=== PATIENT | male | born 1960 | race Caucasian/White ===

== ENCOUNTER → 2019-04-09 13:30 | Outpatient (BNVA) | payer MEDICARE, MEDICAID, SELFPAY | PROVIDERS: Visit Provider Nurse Practitioner | DX: F20.89 Other schizophrenia (principal); F03.90 Unspecified dementia, unspecified severity, without behavioral disturbance, psychotic disturbance, mood disturbance, and anxiety; F17.218 Nicotine dependence, cigarettes, with other nicotine-induced disorders | CPT/HCPCS: 99213 ==

== ENCOUNTER → 2019-06-11 10:30 | Outpatient (BNVA) | payer OTHER, SELFPAY | PROVIDERS: Visit Provider Nurse Practitioner | DX: F20.89 Other schizophrenia (principal); Z79.899 Other long term (current) drug therapy | CPT/HCPCS: 80061; 83036 ==

== ENCOUNTER → 2019-07-02 07:32 | Outpatient (BNVA) | payer MEDICARE, MEDICAID, SELFPAY | PROVIDERS: Visit Provider Nurse Practitioner | DX: F17.218 Nicotine dependence, cigarettes, with other nicotine-induced disorders (principal); F03.90 Unspecified dementia, unspecified severity, without behavioral disturbance, psychotic disturbance, mood disturbance, and anxiety; F20.89 Other schizophrenia | CPT/HCPCS: 99213 ==

== ENCOUNTER → 2019-09-24 07:43 | Outpatient (BNVA) | payer MEDICARE, MEDICAID, SELFPAY ==
[2019-06-18 14:15] VITALS: BP 133/83; BMI 30.5
== END ==
PROVIDERS: Visit Provider Nurse Practitioner
DX: F20.89 Other schizophrenia (principal); F03.90 Unspecified dementia, unspecified severity, without behavioral disturbance, psychotic disturbance, mood disturbance, and anxiety; F17.218 Nicotine dependence, cigarettes, with other nicotine-induced disorders
CPT/HCPCS: 99213

== ENCOUNTER → 2020-01-03 08:01 | Outpatient (BNVA) | payer MEDICARE, MEDICAID, SELFPAY ==
[2019-06-18 14:15] VITALS: BP 133/83; BMI 30.5
== END ==
PROVIDERS: Visit Provider Nurse Practitioner
DX: F03.90 Unspecified dementia, unspecified severity, without behavioral disturbance, psychotic disturbance, mood disturbance, and anxiety (principal); F20.89 Other schizophrenia; F17.218 Nicotine dependence, cigarettes, with other nicotine-induced disorders
CPT/HCPCS: 99213

== ENCOUNTER → 2020-04-17 08:45 | Outpatient (BNVA) | payer MEDICARE, MEDICAID, SELFPAY ==
[2019-06-18 14:15] VITALS: BP 133/83; BMI 30.5
== END ==
PROVIDERS: Visit Provider Nurse Practitioner
DX: F20.89 Other schizophrenia (principal); F03.90 Unspecified dementia, unspecified severity, without behavioral disturbance, psychotic disturbance, mood disturbance, and anxiety; F17.218 Nicotine dependence, cigarettes, with other nicotine-induced disorders
CPT/HCPCS: 99213

== ENCOUNTER → 2020-07-27 14:37 | Outpatient (BNVA) | payer MEDICARE, MEDICAID, SELFPAY ==
[2019-06-18 14:15] VITALS: BP 133/83; BMI 30.5
== END ==
PROVIDERS: Visit Provider Nurse Practitioner
DX: F20.89 Other schizophrenia (principal); F03.90 Unspecified dementia, unspecified severity, without behavioral disturbance, psychotic disturbance, mood disturbance, and anxiety; F17.218 Nicotine dependence, cigarettes, with other nicotine-induced disorders
CPT/HCPCS: 99214

== ENCOUNTER → 2020-10-19 14:38 | Outpatient (BNVA) | payer MEDICARE, MEDICAID, SELFPAY ==
[2019-06-18 14:15] VITALS: BP 133/83; BMI 30.5
== END ==
PROVIDERS: Visit Provider Nurse Practitioner
DX: F20.89 Other schizophrenia (principal); F03.90 Unspecified dementia, unspecified severity, without behavioral disturbance, psychotic disturbance, mood disturbance, and anxiety; F17.218 Nicotine dependence, cigarettes, with other nicotine-induced disorders
CPT/HCPCS: 99214

== ENCOUNTER → 2021-01-13 13:39 | Outpatient (BNVA) | payer MEDICARE, MEDICAID, SELFPAY ==
[2019-06-18 14:15] VITALS: BP 133/83; BMI 30.5
== END ==
PROVIDERS: Visit Provider Nurse Practitioner
DX: F20.89 Other schizophrenia (principal); F03.90 Unspecified dementia, unspecified severity, without behavioral disturbance, psychotic disturbance, mood disturbance, and anxiety; F17.218 Nicotine dependence, cigarettes, with other nicotine-induced disorders
CPT/HCPCS: 99214

== ENCOUNTER → 2021-02-17 10:13 | Outpatient (BNVA) | payer MEDICARE, MEDICAID, SELFPAY ==
[2019-06-18 14:15] VITALS: BP 133/83; BMI 30.5
== END ==
PROVIDERS: Visit Provider Nurse Practitioner
DX: F20.89 Other schizophrenia (principal); Z79.899 Other long term (current) drug therapy
CPT/HCPCS: 80061; 83036

== ENCOUNTER → 2021-04-16 14:30 | Outpatient (BNVA) | payer MEDICARE, MEDICAID, SELFPAY ==
[2019-06-18 14:15] VITALS: BP 133/83; BMI 30.5
== END ==
PROVIDERS: Visit Provider Nurse Practitioner
DX: F20.89 Other schizophrenia (principal); F03.90 Unspecified dementia, unspecified severity, without behavioral disturbance, psychotic disturbance, mood disturbance, and anxiety; F17.218 Nicotine dependence, cigarettes, with other nicotine-induced disorders
CPT/HCPCS: 99214

== ENCOUNTER → 2021-07-08 14:48 | Outpatient (BNVA) | payer MEDICARE, MEDICAID, SELFPAY ==
[2019-06-18 14:15] VITALS: BP 133/83; BMI 30.5
== END ==
PROVIDERS: Visit Provider Nurse Practitioner
DX: F20.89 Other schizophrenia (principal); F03.90 Unspecified dementia, unspecified severity, without behavioral disturbance, psychotic disturbance, mood disturbance, and anxiety; F17.218 Nicotine dependence, cigarettes, with other nicotine-induced disorders
CPT/HCPCS: 99214

== ENCOUNTER → 2021-09-29 13:37 | Outpatient (BNVA) | payer MEDICARE, MEDICAID, SELFPAY ==
[2019-06-18 14:15] VITALS: BP 133/83; BMI 30.5
== END ==
PROVIDERS: Visit Provider Nurse Practitioner
DX: F20.89 Other schizophrenia (principal); F17.218 Nicotine dependence, cigarettes, with other nicotine-induced disorders; F03.90 Unspecified dementia, unspecified severity, without behavioral disturbance, psychotic disturbance, mood disturbance, and anxiety
CPT/HCPCS: 99214

== ENCOUNTER → 2023-04-05 15:37 | Outpatient (BNVA) | payer MEDICARE, OTHER, SELFPAY ==
[2019-06-18 14:15] VITALS: BP 133/83; BMI 30.5
== END ==
PROVIDERS: Visit Provider Nurse Practitioner
DX: F20.89 Other schizophrenia (principal); F17.218 Nicotine dependence, cigarettes, with other nicotine-induced disorders; F03.90 Unspecified dementia, unspecified severity, without behavioral disturbance, psychotic disturbance, mood disturbance, and anxiety; Z79.899 Other long term (current) drug therapy
CPT/HCPCS: 80061; 83036